=== PATIENT | male | born 1930 | race Caucasian/White ===

== ENCOUNTER 2016-10-08 13:19 | Emergency (ER) | payer OTHER ==
[~2016-10-08] VITALS: Ht 167.6 cm; Wt 76.0 kg
[~2016-10-08 13:19] MED LIST: ACET1TAB40 PO; ASPI-664 PO; DOCU-144 PO; POLY17PO6 PO; VALS80TA2 PO
[2016-10-08 13:26] VITALS: Ht 167.6 cm; Wt 76.0 kg
--- NOTE | 2016-10-08 14:35 | ERD ---
ER Documentation Chief Complaint Date/Time DATE: 10/08/16 TIME: 14:31 Chief Complaint Pt with B nipple pain x 2 months. HPI 86-year-old male who presented emergency department for bilateral nipple pain for about 2-3 months. Stated that the reason why he came because his appointment with his doctor is about 3 weeks. Denies headache, loss of consciousness, dizziness, blurry vision, changes in vision, photophobia, facial pain, ear pain, throat pain, difficulty swallowing, neck pain, shoulder pain, chest pain, nipple discharge, nipple bleeding, trauma , cough, hemoptysis, abdominal pain, back pain, loss of appetite, nausea, vomiting, hematochezia, diarrhea, constipation, urinary symptoms, bladder and bowel incontinences, extremity weakness, extremity tenderness, numbness or tingling sensation, difficulty walking, recent travel, recent exposure to illness, recent antibiotic use in the last 3 months, fever, chills. Allergy: No known drug allergies. PMH: Hypertension. Medications: Valsartan, amlodipine. Surgery: Denies. Family history: Denies. Primary Social History: Retired. Denies smoking, use of alcohol, use of illegal drugs. ROS All systems reviewed and are negative except as per history of present illness. Medications Home Meds Active Scripts Acetaminophen* (Tylophen*) 500 Mg Capsule, 1 CAP PO Q6H Y for PAIN AND OR ELEVATED TEMP, #20 CAP Prov:MIRNA VERGARA 10/08/16 Acetaminophen-Codeine* (Acetaminophen-Cod #3*) 300-30 Mg Tab, 1 TAB PO Q6 Y for PAIN, #30 TAB 0 Refills Prov:TEJAS AGUIRRE PA-C 07/08/15 Valsartan* (Diovan*) 80 Mg Tablet, 80 MG PO BID, #60 TAB Prov:MAIA LANIER MD 03/05/15 Aspirin* (Aspirin* EC) 81 Mg Tabec, 81 MG PO DAILY for 28 Days, BOT Prov:MAIA LANIER MD 03/05/15 Docusate Sodium* (Colace*) 100 Mg Capsule, 100 MG PO TID, #30 Prov:DEEPTHI WINSTON MD 03/03/15 Polyethylene Glycol* (Miralax*) 17 Gm Powd.pack, 17 GM PO DAILY, #7 Prov:DEEPTHI WINSTON MD 03/03/15 Allergies Allergies: Coded Allergies: No Known Drug Allergy (Verified Allergy, Unknown, 10/08/16) PMhx/Soc History of Surgery: Yes Anesthesia Reaction: No Hx Neurological Disorder: No Hx Respiratory Disorders: No Hx Cardiac Disorders: Yes (CHF) Hx Psychiatric Problems: No Hx Miscellaneous Medical Probl: No Hx Alcohol Use: No Hx Substance Use: No Hx Tobacco Use: No (25 YRS AGO QUIT SMOKING) Physical Exam Vitals Physical Exam CONSTITUTIONAL: Well-appearing; well-nourished; in no apparent distress. HEAD: Normocephalic; atraumatic. EYES: Conjunctiva clear, sclera non-icteric, EOM intact. PERRL Ears: Hearing intact. EACs clear, TMs non-bulging, non-inflamed, translucent & mobile, ossicles normal appearance, No obstructions, no erythema, no discharges Nose: No obstructions. No polyps. No external lesions. Mucosa non-inflamed. No external lesions, septum and turbinates normal. No rhinorrhea. No discharges. Frontal sinus is non-tender to palpation. Maxillary sinus is non-tender to palpation. MOUTH: Moist mucous membranes, no lesion, no obstructions, no vesicles, no thrush, patent airway Throat: Uvula in midline. Right tonsil is +1 with no erythema, no exudate. Left tonsil is +1 with no erythema, no exudate. Tolerating secretions well. Good gag reflex. Patent airway. Neck: Supple, without lesions, bruits, or adenopathy. No mass. Thyroid non- enlarged and non-tender to palpation. CHEST: Symmetrical chest. Respirations even and not labored. No retractions noted. Bilateral breast are unremarkable and palpation. Bilateral nipple is mild tenderness bilaterally. No discharges. No bleeding. No lumps. No abscess. No induration noted. CARDIOVASCULAR: Normal S1, S2. RRR. No murmurs, gallops. RESPIRATORY: Normal chest excursion with respiration; breath sounds clear and equal bilaterally; no wheezes, rhonchi, or rales. Breathing even and unlabored. Speaking in clear, full, and complete sentences w/ ease. ABDOMEN: Normal bowel sounds normal. Soft, round, non-distended, non-guarding, no tenderness, no rebound, no organomegaly, no masses, no pulsating abdominal mass. No hernia. No peritoneal signs. : No CVA tenderness. BACK: Symmetrical shoulder. Spine is midline without deformity, tenderness. No evidence of trauma or deformity. PELVIS: Stable pelvis. No evidence of trauma or deformity. MUSCULOSKELETAL: Normal gait and station. No misalignment, asymmetry, crepitation, defects, tenderness, masses, effusions, decreased range of motion, instability, atrophy or abnormal strength or tone in the head, neck, spine, ribs , pelvis or extremities. No calf tenderness. NEUROVASCULAR: Distal pulses are present. Pedal pulse are present, equal, and normal. Capillary refills are < 2 seconds. NEUROLOGIC: Alert and oriented x4. Speaks full and clear sentences. Cranial Nerves II-XII normal. Sensation to pain, touch, and proprioception normal. Grossly unremarkable. No neurologic deficits. Romberg test is negative. PSYCHOLOGICAL: The patients mood and manner are appropriate. No hallucinations , delusions. Not SI. Not HI. Has the capacity to decide for self SKIN: Normal for age and ethnicity; warm; dry; good turgor; no apparent lesions or exudates. No rashes, hives, discoloration. Intact. Results 24 hrs Current Medications Medications (Trade) Dose Ordered Sig/Johnny Route PRN Reason Start Time Stop Time Status Last Admin Dose Admin Acetaminophen (Tylenol Tab) 500 mg ONCE STAT PO 10/08/16 14:36 10/08/16 14:37 DC 10/08/16 14:40 Procedures/MDM Examination: Please see physical examination. Disease process, medical treatment was explained to the patient and family member. They verbalized understanding and agreed with the medical treatment, and follow-up care. Treatment: None. Re-evaluation: Denies headache, dizziness, blurry vision, neck pain, shoulder pain, chest pain, back pain, nausea. No episode of emesis in the emergency department. There is no right upper/right lower/epigastric/left upper/left lower abdominal tenderness on light and deep palpation. No CVA tenderness. No peritoneal signs. Alert and oriented 4. Speaks full and clear sentences. No neurological deficits. No neurovascular deficits. Consultation: None. Differential diagnosis: Medical decision makin-year-old male who presented emergency department for bilateral nipple pain for about 2-3 months. Stated that the reason why he came because his appointment with his doctor is about 3 weeks. Patient's complaint, patient's history about his complaint, my physical findings, my reevaluation are consistent my final diagnosis of breast pain. Medications prescribed are the following: Tylenol. Patient and family member are made aware of the side effects and adverse reactions of the medications prescribed. Instructed on when to seek emergent and medical attention in case allergic/anaphylactic reactions or severe side effects and or adverse reactions to medications. Patient and family member verbalized understanding. Patient instructed Instructed to follow-up with his PCP in 24-48 hours. Instructed to Call 911 for chest pain, shortness of breath. Advised to come back here in ED as soon as possible for severity of symptoms which includes but not limited to: any new symptoms; shortness of breath/difficulty of breathing; cardiovascular changes; severe gastrointestinal symptoms; signs and symptoms of bleeding and or infection; signs of compartment syndrome/neurovascular changes; neurological changes/deficits. Patient and family member verbalized understanding. Upon discharge, patient is alert and oriented x 4, speaks full and clear sentences, denies pain, has no neurological deficits, has no neurovascular deficits, difficulty of breathing. Breathing even and unlabored. Lung sounds are clear to auscultation. Not in distress. Appears comfortable. Ambulatory with steady gait. Appears satisfied with care provided here in ED. Departure Diagnosis: Primary Impression: Breast pain Condition: Good Additional Instructions: Instructed to follow-up with his PCP in 24-48 hours. Instructed to Call 911 for chest pain, shortness of breath. Advised to come back here in ED as soon as possible for severity of symptoms which includes but not limited to: any new symptoms; shortness of breath/difficulty of breathing; cardiovascular changes; severe gastrointestinal symptoms; signs and symptoms of bleeding and or infection; signs of compartment syndrome/neurovascular changes; neurological changes/deficits. Patient and family member verbalized understanding. MIRNA VERGARA Oct 08, 2016 14:35
[2016-10-08] MEDS ORDERED: ACETAMINOPHEN 500 MG TAB PO STA (14:36)
[2016-10-08] MEDS ORDERED: ACET500C5 PO (14:37)
== END 2016-10-08 14:45 | disposition home or self-care (01) ==
LOC: FTE 13:19
DX: N64.4 Mastodynia (principal); I10 Essential (primary) hypertension; I50.9 Heart failure, unspecified; Z79.82 Long term (current) use of aspirin; Z87.891 Personal history of nicotine dependence
CPT/HCPCS: 99283

== ENCOUNTER 2017-10-07 15:49 | Emergency (ER) | END 2017-10-07 20:30 | disposition home or self-care (01) ==

== ENCOUNTER 2018-07-05 01:24 | Emergency (ER) | payer OTHER ==
[~2018-07-05] VITALS: Wt 77.8 kg
[~2018-07-05 01:24] MED LIST changes: +ACET-2047 PO; -ACET1TAB40 PO; +AMLO5TAB4 PO; -ASPI-664 PO; +BICA50TA5 PO; +CHOL200073 PO; -DOCU-144 PO; +FOLI-49 PO; +MELO15TA30 PO; +OMEP20CA16 PO; -POLY17PO6 PO; +ROSU10TA55 PO; +VALS160T20 PO; -VALS80TA2 PO
--- NOTE | 2018-07-05 05:38 | ERD ---
ER Documentation Chief Complaint Chief Complaint urinary retention x's 3 days. hx of prostate ca HPI This very pleasant 87 female complains of urinary retention on and off for the past 3 days. Patient does have history of prostate cancer. He is able to urinate, however very slowly. Also complains of left-sided flank pain. No fevers no chills no nausea vomiting. No tanya dysuria. No blood in his urine. No other current issues. ROS All systems reviewed and are negative except as per history of present illness. Medications Home Meds Active Scripts Acetaminophen* (Acetaminophen*) 650 Mg Tablet, 650 MG PO Q6H PRN for PAIN AND OR ELEVATED TEMP, #18 TAB Prov:KENZIE AUGUSTE DO 10/07/17 Reported Medications Cholecalciferol (Vitamin D3) (VITAMIN D-3) 2,000 Unit Capsule, 2000 UNIT PO DAILY, CAP 10/07/17 Valsartan* (Diovan*) 160 Mg Tablet, 160 MG PO DAILY, TAB 10/07/17 Amlodipine Besylate* (Norvasc*) 5 Mg Tablet, 5 MG PO DAILY, TAB 10/07/17 Rosuvastatin Calcium* (Crestor*) 10 Mg Tablet, 10 MG PO QHS, #30 TAB 10/07/17 Meloxicam* (Mobic*) 15 Mg Tablet, 15 MG PO DAILY, #30 TAB 18 Bicalutamide* (Casodex*) 50 Mg Tablet, 50 MG PO DAILY, TAB 10/07/17 Omeprazole* (Omeprazole*) 20 Mg Capsule.dr, 20 MG PO DAILY, #30 CAP 10/07/17 Folic Acid* (Folic Acid*) 1 Mg Tablet, 1 MG PO DAILY, TAB 10/07/17 Allergies Allergies: Coded Allergies: No Known Drug Allergy (Unverified Allergy, Unknown, 07/05/18) PMhx/Soc History of Surgery: Yes (PARTIAL PROSTATECTOMY ) Anesthesia Reaction: No Hx Neurological Disorder: No Hx Respiratory Disorders: No Hx Cardiac Disorders: Yes (CHF, HTN, DYSLIPIDEMIA) Hx Psychiatric Problems: No Hx Miscellaneous Medical Probl: Yes (PROSTATE CANCER ) Hx Alcohol Use: No Hx Substance Use: No Hx Tobacco Use: No (25 YRS AGO QUIT SMOKING) Smoking Status: Never smoker Physical Exam Vitals Vital Signs Date Temp Pulse Resp B/P (MAP) Pulse Ox O2 O2 Flow FiO2 Time Delivery Rate 07/05/18 76 20 146/80 98 Room Air 04:20 (102) 07/05/18 98.2 77 18 157/77 98 01:29 (103) Physical Exam Const: No acute distress Head: Atraumatic Eyes: Normal Conjunctiva ENT: Normal External Ears, Nose and Mouth. Neck: Full range of motion. No meningismus. Resp: Clear to auscultation bilaterally Cardio: Regular rate and rhythm, no murmurs Abd: Soft, non tender, non distended. Normal bowel sounds Skin: No petechiae or rashes Back: No midline or flank tenderness Ext: No cyanosis, or edema Neur: Awake and alert Psych: Normal Mood and Affect Results 24 hrs Laboratory Tests Test 07/05/18 03:30 Urine Color YELLOW Urine Clarity CLEAR Urine pH 5.0 Urine Specific [place] 1.014 Urine Ketones NEGATIVE mg/dL Urine Nitrite NEGATIVE mg/dL Urine Bilirubin NEGATIVE mg/dL Urine Urobilinogen NEGATIVE mg/dL Urine Leukocyte Esterase NEGATIVE Thompson/ul Urine Microscopic RBC 63 /HPF Urine Microscopic WBC 3 /HPF Urine Hemoglobin 2+ mg/dL Urine Glucose NEGATIVE mg/dL Urine Total Protein NEGATIVE mg/dl Procedures/MDM Emergency department course: Patient seen and palpitations. Placed in bed from evaluation. Had a Valdez catheter placed to help relieve retention issues. Had CT scan of abdomen pelvis. Medical decision making: This 87-year-old male with urinary retention and mildly obstructing ureteral stone. At this point is clinically stable for outpatient management. Patient be discharged home with Flomax, tramadol, Cipro. He is to follow-up in 8 hours for serial abdominal exams otherwise follow-up with his primary care physician. Departure Diagnosis: Primary Impression: Retention of urine Additional Impression: Urinary retention Condition: Stable EMELINIURKA MartinKeshav Jul 05, 2018 05:38
[2018-07-05] MEDS ORDERED: TAMS-14 PO (05:39)
[2018-07-05] MEDS ORDERED: TRAM50TA2 PO (05:39)
[2018-07-05] MEDS ORDERED: CIPR500T4 PO (05:39)
[2018-07-05 05:42] VITALS: BP 139/75; PULSE 80; RESP 20
== END 2018-07-05 06:42 | disposition home or self-care (01) ==
LOC: E/R 01:24
DX: R33.9 Retention of urine, unspecified (principal); I11.0 Hypertensive heart disease with heart failure; I50.9 Heart failure, unspecified; Z85.46 Personal history of malignant neoplasm of prostate; Z87.891 Personal history of nicotine dependence
CPT/HCPCS: 74176; 81001; 87086

== ENCOUNTER 2018-07-06 10:10 | Emergency (ER) | payer OTHER ==
[~2018-07-06] VITALS: Ht 172.7 cm; Wt 79.9 kg
[~2018-07-06 10:10] MED LIST changes: +CIPR500T4 PO; +TAMS-14 PO; +TRAM50TA2 PO
[2018-07-06 10:13] VITALS: Ht 172.7 cm; Wt 79.9 kg
[2018-07-06 11:44] VITALS: BP 113/64; PULSE 82; RESP 17
--- NOTE | 2018-07-06 15:43 | ERD ---
ER Documentation Chief Complaint Chief Complaint CATHETER REMOVAL HPI 87-year-old male presenting for catheter removal. Patient was seen in the ER yesterday and had a catheter placed after he was having difficulties urinating. He denies any pain. He was told to return to the ER and have catheter removed. He has an appointment with his urologist on July 28. He has a history of prostate cancer however it seems to be in remission. Patient denies any abdominal pain. Denies any back pain. Denies fevers. Medical history is hypertension and hypercholesterolemia with seizures. NKDA. Surgical history denies. Social history denies ROS All systems reviewed and are negative except as per history of present illness. Medications Home Meds Active Scripts Tramadol HCl (Tramadol HCl) 50 Mg Tablet, 50 MG PO Q4 PRN for PAIN, #20 TAB Prov:NIURKA SAINZ 07/05/18 Tamsulosin Hcl* (Flomax*) 0.4 Mg Cap.er.24h, 0.4 MG PO BID, #14 CAP Prov:NIURKA SAINZ 07/05/18 Ciprofloxacin Hcl* (Ciprofloxacin Hcl*) 500 Mg Tablet, 500 MG PO BID for 3 Days, TAB Prov:NIURKA SAINZ 07/05/18 Acetaminophen* (Acetaminophen*) 650 Mg Tablet, 650 MG PO Q6H PRN for PAIN AND OR ELEVATED TEMP, #18 TAB Prov:KENZIE AUGUSTE DO 10/07/17 Reported Medications Cholecalciferol (Vitamin D3) (VITAMIN D-3) 2,000 Unit Capsule, 2000 UNIT PO D YAS CABRERA 10/07/17 Valsartan* (Diovan*) 160 Mg Tablet, 160 MG PO DAILY, TAB 10/07/17 Amlodipine Besylate* (Norvasc*) 5 Mg Tablet, 5 MG PO DAILY, TAB 10/07/17 Rosuvastatin Calcium* (Crestor*) 10 Mg Tablet, 10 MG PO QHS, #30 TAB 10/07/17 Meloxicam* (Mobic*) 15 Mg Tablet, 15 MG PO DAILY, #30 TAB 10/07/17 Bicalutamide* (Casodex*) 50 Mg Tablet, 50 MG PO DAILY, TAB 10/07/17 Omeprazole* (Omeprazole*) 20 Mg Capsule.dr, 20 MG PO DAILY, #30 CAP 10/07/17 Folic Acid* (Folic Acid*) 1 Mg Tablet, 1 MG PO DAILY, TAB 10/07/17 Allergies Allergies: Coded Allergies: No Known Drug Allergy (Unverified Allergy, Unknown, 07/06/18) PMhx/Soc History of Surgery: Yes (PARTIAL PROSTATECTOMY ) Anesthesia Reaction: No Hx Neurological Disorder: No Hx Respiratory Disorders: No Hx Cardiac Disorders: Yes (CHF, HTN, DYSLIPIDEMIA) Hx Psychiatric Problems: No Hx Miscellaneous Medical Probl: Yes (PROSTATE CANCER ) Hx Alcohol Use: No Hx Substance Use: No Hx Tobacco Use: No (25 YRS AGO QUIT SMOKING) FmHx Family History: No diabetes, No coronary disease, No other Physical Exam Vitals Vital Signs Date Temp Pulse Resp B/P (MAP) Pulse Ox O2 O2 Flow FiO2 Time Delivery Rate 07/06/18 98.4 82 17 113/64 93 Room Air 11:44 (80) 07/06/18 98.2 92 19 110/60 93 10:13 (77) Physical Exam GENERAL: The patient is well-appearing, well-nourished, in no acute distress CHEST: Clear to auscultation bilaterally. There are no rales, wheezes or rhonchi. HEART: Regular rate and rhythm. No murmurs, clicks, rubs or gallops. No S3 or S4. ABDOMEN:Soft, nontender and nondistended. Good bowel sounds. No rebound or guarding. No gross peritonitis. No gross organomegaly or masses. BACK: No midline or flank tenderness. Results 24 hrs Laboratory Tests Test 07/06/18 11:09 Bedside Urine pH (LAB) 5.5 Bedside Urine Protein (LAB) 2+ Bedside Urine Glucose (UA) Negative Bedside Urine Ketones (LAB) Negative Bedside Urine Blood 3+ Bedside Urine Nitrite (LAB) Negative Bedside Urine Leukocyte Esterase (L Negative Procedures/MDM ER course: Catheter removed without complication. Urine collected and was negative for infection. MDM: 87-year-old male presenting for urine catheter removal. Patient understood the risk versus benefits of removing the catheter but he stated he felt he wanted his catheter removed and will return if he begins having difficulties urinating. Patient is discharged stricter precautions. All questions answered at discharge Departure Diagnosis: Primary Impression: BPH (benign prostatic hyperplasia) Condition: Stable Patient Instructions: Bph (Enlarged Prostate) Additional Instructions: FOLLOW UP WITH YOUR PRIMARY CARE PHYSICIAN TOMORROW.Return to this facility if you are not improving as expected. VICENTA CHEN PA-C Jul 06, 2018 15:43
== END 2018-07-06 11:46 | disposition home or self-care (01) ==
LOC: FTE 10:10
DX: N40.0 Benign prostatic hyperplasia without lower urinary tract symptoms (principal); I10 Essential (primary) hypertension; I50.9 Heart failure, unspecified; Z85.46 Personal history of malignant neoplasm of prostate
CPT/HCPCS: 81003; 99283